=== PATIENT | female | born 1970 | race African-American/Black ===

== ENCOUNTER 2017-07-28 14:48 | Emergency (ER) | payer OTHER ==
[2017-07-28 14:53] VITALS: BP 145/99; PULSE 98; TEMP 99.3; BMI 32.3
--- NOTE | 2017-07-28 15:30 | PDOC ---
History of Present Illness - General Chief Complaint: Vomiting/Diarrhea Stated Complaint: FEVER Time Seen by Provider: 07/28/17 15:30 - History of Present Illness Initial Comments: 07/28/17 19:02 Ms. Tijerina is a 46 yo female w/ pmh of gastritis and pancreatitis who presents for evaluation of 1 month history of diarrhea. She reports this ran for about 3 weeks and had mostly improved before it returned this past week and has been complicated by fever, nausea, and vomiting for the past 2-3 days with associated abdominal pain. The patient denies chest pain, shortness of breath, headache and dizziness. Denies chills and constipation. Denies dysuria, frequency, urgency and hematuria. Allergies: Latex Past History - Past Medical History Allergies/Adverse Reactions: Allergies Allergy/AdvReac Type Severity Reaction Status Date / Time latex Allergy Verified 07/28/17 14:51 Home Medications: Ambulatory Orders Famotidine 20 mg PO BID #60 tablet 09/22/14 Ondansetron [Zofran *Odt*] 8 mg SL TID #15 od.tablet 12/12/14 Oxycodone HCl/Acetaminophen [Percocet 5/325 -] 1 tab PO Q4H #20 tablet 12/12/14 COPD: No GI Disorders: Yes (ACID REFLUX) - Suicide/Smoking/Psychosocial Hx Smoking History: Never smoked Have you smoked in the past 12 months: No Hx Alcohol Use: No Drug/Substance Use Hx: No Review of Systems - Review of Systems Comments:: 07/28/17 19:03 GENERAL/CONSTITUTIONAL: +Subjective fever as described. No chills. No weakness. HEAD, EYES, EARS, NOSE AND THROAT: No change in vision. No ear pain or discharge. No sore throat. CARDIOVASCULAR: No chest pain or shortness of breath RESPIRATORY: No cough, wheezing, or hemoptysis. GASTROINTESTINAL: +N/V/D as described. Abdominal pain for the last 2-3 days as well. No constipation. GENITOURINARY: No dysuria, frequency, or change in urination. MUSCULOSKELETAL: No joint or muscle swelling or pain. No neck or back pain. SKIN: No rash NEUROLOGIC: No headache, vertigo, loss of consciousness, or change in strength/ sensation. ENDOCRINE: No increased thirst. No abnormal weight change HEMATOLOGIC/LYMPHATIC: No anemia, easy bleeding, or history of blood clots. ALLERGIC/IMMUNOLOGIC: No hives or skin allergy. *Physical Exam - Vital Signs Last Vital Signs Temp Pulse Resp BP Pulse Ox 99.3 F 98 H 18 145/99 100 07/28/17 14:51 07/28/17 14:51 07/28/17 14:51 07/28/17 14:51 07/28/17 14:51 - Physical Exam Comments: 07/28/17 19:04 GENERAL: Awake, alert, and fully oriented, in no acute distress HEAD: No signs of trauma, normocephalic, atraumatic EYES: PERRLA, EOMI, sclera anicteric, conjunctiva clear ENT: Auricles normal inspection, hearing grossly normal, nares patent, oropharynx clear without exudates. Moist mucosa NECK: Normal ROM, supple, no lymphadenopathy, JVD, or masses LUNGS: No distress, speaks full sentences, clear to auscultation bilaterally HEART: Regular rate and rhythm, normal S1 and S2, no murmurs, rubs or gallops, peripheral pulses normal and equal bilaterally. ABDOMEN: +TTP in upper left/right quadrants. Normoactive bowel sounds. No guarding, no rebound. No masses EXTREMITIES: Normal inspection, Normal range of motion, no edema. No clubbing or cyanosis. NEUROLOGICAL: Cranial nerves II through XII grossly intact. Normal speech, normal gait, no focal sensorimotor deficits SKIN: Warm, Dry, normal turgor, no rashes or lesions noted. ED Treatment Course - LABORATORY CBC & Chemistry Diagram: 07/28/17 16:00 07/28/17 17:47 Medical Decision Making - Medical Decision Making 07/28/17 19:04 Ms. Tijerina is a 46 yo female w/ pmh as described who presents for evaluation of N/V/D for the past month. Patient found to be acutely tender as well. GI workup started including lipase for r/o pancreatitis and CT abdomen/pelvis to evaluate for acute process. ED course delayed by difficulty accessing veins and hemolyzed labs requiring repeat. Patient currently pending CT. Patient signed out to Dr. Martinez for further evaluation. *DC/Admit/Observation/Transfer Diagnosis at time of Disposition: Nausea & vomiting Qualifiers: Vomiting type: unspecified Vomiting Intractability: non-intractable Qualified Code(s): R11.2 - Nausea with vomiting, unspecified Abdominal pain Qualifiers: Abdominal location: unspecified location Qualified Code(s): R10.9 - Unspecified abdominal pain - Referrals - Patient Instructions - Post Discharge Activity
[2017-07-28] MEDS ORDERED: SODIUM CHLORIDE 1,000 ML IV STA (15:54)
[2017-07-28] MEDS ORDERED: ONDANSETRON 4 MG/2 ML VIAL IVPUSH ONE (15:54)
--- NOTE | 2017-07-28 15:56 | PDOC ---
Attending Attestation - Resident Resident Name: Alexis Whelan - ED Attending Attestation I have performed the following: I have examined & evaluated the patient, The case was reviewed & discussed with the resident, I agree w/resident's findings & plan, Exceptions are as noted - HPI HPI: 07/28/17 15:51 46y F presents 1 month of diarrhea that resolved 2 weeks ago and now with 4 days of epigastric pain, constant, nonradiating, not worsen with food, subjective fever/chills with persistent vomiting. pt notes unable to tolerate oral intake. pt denies any chest pain, new diarrhea, dysuria, sob, cough. on exam pt in no distress, well appearing abdomen noted for mild epigastric pain, otherwise no rebound/guarding ddx pancreatitis, gastritis, gastroenteritis will ck UA will give pepcid/zofran, fluids ek gto screen for acs - Physicial Exam PE: 07/29/17 08:22 see above - Medical Decision Making 07/29/17 08:22 see above
[2017-07-28 16:37] LABS: HCG,QUALITATIVE URINE NEGATIVE
[2017-07-28 16:39] LABS: URINE APPEARANCE CLEAR; URINE BILIRUBIN NEGATIVE (<2.0 mg/dL); URINE BLOOD NEGATIVE (NEGATIVE); URINE COLOR YELLOW; URINE GLUCOSE (UA) NEGATIVE (NEGATIVE); URINE KETONE 2+ (NEGATIVE); URINE LEUK ESTERASE NEGATIVE (NEGATIVE); URINE NITRITE NEGATIVE (NEGATIVE)
[2017-07-28 16:42] LABS: EOS % 0.1 % (0-4.5); HEMATOCRIT 41.1 % (32.4-45.2); HEMOGLOBIN 13.9 GM/dL (10.7-15.3); LYMPH % 19.2 % (8-40); MCH 33.5 pg (25.7-33.7); MCHC 33.7 g/dl (32.0-36.0); MEAN CELL VOLUME 99.4 fl (80-96); MEAN PLT VOLUME 11.2 fl (7.5-11.1); MONO % 2.8 % (3.8-10.2); NEUT % 76.9 % (42.8-82.8); PLATELET COUNT 278 K/MM3 (134-434); RBC 4.13 M/mm3 (3.60-5.2); RDW 13.7 % (11.6-15.6); WHITE BLOOD COUNT 7.8 K/mm3 (4.0-10.0)
[2017-07-28] MEDS ORDERED: FAMOTIDINE 20 MG/50 ML IVPB 20 MG/50 ML MG IVPB ONE ×2 (16:48→16:55)
[2017-07-28] MEDS ORDERED: MAG HYDROX/AL HYDROX/SIMETH 30 ML UNIT-DOSE CUP PO ONE (16:48)
[2017-07-28] MEDS ORDERED: MAG HYDROX/AL HYDROX/SIMETH 30 ML UNIT-DOSE CUP ONE (16:55)
[2017-07-28 17:08] LABS: URINE PROTEIN 1+ (NEGATIVE)
[2017-07-28 17:10] LABS: EPI CELLS RARE /HPF (FEW); URINE MUCUS FEW
[2017-07-28 18:16] LABS: ALK PHOS 69 U/L (45-117); CHLORIDE 105 mmol/L (98-107); POTASSIUM 3.9 mmol/L (3.5-5.1); SGPT/ALT 71 U/L (12-78); SODIUM 139 mmol/L (136-145)
[2017-07-28] MEDS ORDERED: ACETAMINOPHEN 1000 MG/100 ML VIAL (NON FORMULARY) IVPB ONE (18:25)
[2017-07-28 18:26] LABS: ALBUMIN 3.8 g/dl (3.4-5.0); ANION GAP 8 (8-16); BILIRUBIN,TOTAL 0.5 mg/dL (0.2-1.0); BLOOD UREA NITROGEN 8 mg/dL (7-18); CALCIUM 8.8 mg/dL (8.5-10.1); CO2 26 mmol/L (21-32); CREATININE 0.7 mg/dL (0.55-1.02); GLUCOSE,RANDOM 82 mg/dL (74-106); SGOT/AST 33 U/L (15-37); TOT PROT 8.1 g/dl (6.4-8.2)
[2017-07-28] MEDS ORDERED: ACETAMINOPHEN INJECTION 100 ML IVPB ONE (18:30)
--- NOTE | 2017-07-28 20:57 | PDOC ---
History of Present Illness - General Chief Complaint: Vomiting/Diarrhea Stated Complaint: FEVER Time Seen by Provider: 07/28/17 15:30 Past History - Past Medical History Allergies/Adverse Reactions: Allergies Allergy/AdvReac Type Severity Reaction Status Date / Time latex Allergy Verified 07/28/17 14:51 Home Medications: Ambulatory Orders Famotidine 20 mg PO BID #60 tablet 09/22/14 Ondansetron [Zofran *Odt*] 8 mg SL TID #15 od.tablet 12/12/14 Oxycodone HCl/Acetaminophen [Percocet 5/325 -] 1 tab PO Q4H #20 tablet 12/12/14 COPD: No GI Disorders: Yes (ACID REFLUX) - Suicide/Smoking/Psychosocial Hx Smoking History: Never smoked Have you smoked in the past 12 months: No Hx Alcohol Use: No Drug/Substance Use Hx: No *Physical Exam - Vital Signs Last Vital Signs Temp Pulse Resp BP Pulse Ox 99.3 F 98 H 18 145/99 100 07/28/17 14:51 07/28/17 14:51 07/28/17 14:51 07/28/17 14:51 07/28/17 14:51 ED Treatment Course - LABORATORY CBC & Chemistry Diagram: 07/28/17 16:00 07/28/17 17:47 - ADDITIONAL ORDERS Additional order review: Laboratory Results 07/28/17 07/28/17 07/28/17 17:48 17:47 16:00 Sodium 139 Potassium 3.9 Chloride 105 Carbon Dioxide 26 Anion Gap 8 BUN 8 Creatinine 0.7 Creat Clearance w eGFR > 60 Random Glucose 82 Lactic Acid 1.0 Calcium 8.8 Total Bilirubin 0.5 AST 33 ALT 71 Alkaline Phosphatase 69 Total Protein 8.1 Albumin 3.8 Lipase 189 Urine Color Urine Appearance Urine pH Ur Specific [place] Urine Protein Urine Glucose (UA) Urine Ketones Urine Blood Urine Nitrite Urine Bilirubin Urine Urobilinogen Ur Leukocyte Esterase Urine WBC (Auto) Urine RBC (Auto) Ur Epithelial Cells Urine Mucus Urine HCG, Qual 07/28/17 07/28/17 16:00 15:54 Sodium Cancelled Potassium Cancelled Chloride Cancelled Carbon Dioxide Cancelled Anion Gap Cancelled BUN Cancelled Creatinine Cancelled Creat Clearance w eGFR Cancelled Random Glucose Cancelled Lactic Acid Calcium Cancelled Total Bilirubin Cancelled AST Cancelled ALT Cancelled Alkaline Phosphatase Cancelled Total Protein Cancelled Albumin Cancelled Lipase Cancelled Urine Color Yellow Urine Appearance Clear Urine pH 6.0 Ur Specific [place] 1.026 Urine Protein 1+ H Urine Glucose (UA) Negative Urine Ketones 2+ H Urine Blood Negative Urine Nitrite Negative Urine Bilirubin Negative Urine Urobilinogen 2.0 H Ur Leukocyte Esterase Negative Urine WBC (Auto) 1 Urine RBC (Auto) 9 Ur Epithelial Cells Rare Urine Mucus Few Urine HCG, Qual Negative 07/28/17 16:00 RBC 4.13 MCV 99.4 H MCHC 33.7 RDW 13.7 MPV 11.2 H Neutrophils % 76.9 Lymphocytes % 19.2 Monocytes % 2.8 L Eosinophils % 0.1 Basophils % 1.0 - RADIOLOGY Radiology Studies Ordered: Category Date Time Status ABDOMEN & PELVIS CT W/O CONTR [CT] Stat CT Scan 07/28/17 20:52 Ordered - Medications Given in the ED: ED Medications Discontinued Medications Generic Name Dose Route Start Last Admin Trade Name Freq PRN Reason Stop Dose Admin Acetaminophen 1,000 mg 07/28/17 18:25 07/28/17 18:29 Ofirmev Injection - IVPB 07/28/17 18:26 1,000 mg ONCE ONE Administration Al Hydroxide/Mg Hydroxide 30 ml 07/28/17 16:48 07/28/17 17:04 Mylanta Oral Suspension - PO 07/28/17 16:49 30 ml ONCE ONE Administration Sodium Chloride 1,000 mls @ 1,000 mls/hr 07/28/17 15:54 07/28/17 16:03 Normal Saline - IV 07/28/17 16:53 1,000 mls/hr ASDIR STA Administration Famotidine/Sodium Chloride 20 mg in 50 mls @ 100 mls/hr 07/28/17 16:48 17:04 Pepcid 20 Mg Premixed Ivpb - IVPB 07/28/17 17:17 100 mls/hr ONCE ONE Administration Ondansetron HCl 4 mg 07/28/17 15:54 07/28/17 16:03 Zofran Injection IVPUSH 07/28/17 15:55 4 mg ONCE ONE Administration *DC/Admit/Observation/Transfer Diagnosis at time of Disposition: Nausea & vomiting Qualifiers: Vomiting type: unspecified Vomiting Intractability: non-intractable Qualified Code(s): R11.2 - Nausea with vomiting, unspecified Abdominal pain Qualifiers: Abdominal location: unspecified location Qualified Code(s): R10.9 - Unspecified abdominal pain - Referrals - Patient Instructions - Post Discharge Activity
--- NOTE | 2017-07-28 21:28 | PDOC ---
*Physical Exam - Vital Signs Last Vital Signs Temp Pulse Resp BP Pulse Ox 99.3 F 98 H 18 145/99 100 07/28/17 14:51 07/28/17 14:51 07/28/17 14:51 07/28/17 14:51 07/28/17 14:51 - Physical Exam Comments: 07/28/17 22:04 GENERAL: Awake, alert, and fully oriented, in no acute distress HEAD: No signs of trauma, normocephalic, atraumatic EYES: PERRLA, EOMI, sclera anicteric, conjunctiva clear ENT: Hearing grossly normal, nares patent, oropharynx clear without exudates. Moist mucosa NECK: Normal ROM, supple, no lymphadenopathy, JVD, or masses LUNGS: No distress, speaks full sentences, clear to auscultation bilaterally HEART: Regular rate and rhythm, normal S1 and S2, no murmurs, rubs or gallops, peripheral pulses normal and equal bilaterally. ABDOMEN:+ Epigastric ttp. Soft, nontender, normoactive bowel sounds. No guarding, no rebound. No masses. Neg CVA ttp. EXTREMITIES : Normal inspection, Normal range of motion, no edema. No clubbing or cyanosis. SKIN: Warm, Dry, normal turgor, no rashes or lesions noted ED Treatment Course - LABORATORY CBC & Chemistry Diagram: 07/28/17 16:00 07/28/17 17:47 - ADDITIONAL ORDERS Additional order review: Laboratory Results 07/28/17 07/28/17 07/28/17 17:48 17:47 16:00 Sodium 139 Potassium 3.9 Chloride 105 Carbon Dioxide 26 Anion Gap 8 BUN 8 Creatinine 0.7 Creat Clearance w eGFR > 60 Random Glucose 82 Lactic Acid 1.0 Calcium 8.8 Total Bilirubin 0.5 AST 33 ALT 71 Alkaline Phosphatase 69 Total Protein 8.1 Albumin 3.8 Lipase 189 Urine Color Urine Appearance Urine pH Ur Specific [place] Urine Protein Urine Glucose (UA) Urine Ketones Urine Blood Urine Nitrite Urine Bilirubin Urine Urobilinogen Ur Leukocyte Esterase Urine WBC (Auto) Urine RBC (Auto) Ur Epithelial Cells Urine Mucus Urine HCG, Qual 07/28/17 07/28/17 16:00 15:54 Sodium Cancelled Potassium Cancelled Chloride Cancelled Carbon Dioxide Cancelled Anion Gap Cancelled BUN Cancelled Creatinine Cancelled Creat Clearance w eGFR Cancelled Random Glucose Cancelled Lactic Acid Calcium Cancelled Total Bilirubin Cancelled AST Cancelled ALT Cancelled Alkaline Phosphatase Cancelled Total Protein Cancelled Albumin Cancelled Lipase Cancelled Urine Color Yellow Urine Appearance Clear Urine pH 6.0 Ur Specific [place] 1.026 Urine Protein 1+ H Urine Glucose (UA) Negative Urine Ketones 2+ H Urine Blood Negative Urine Nitrite Negative Urine Bilirubin Negative Urine Urobilinogen 2.0 H Ur Leukocyte Esterase Negative Urine WBC (Auto) 1 Urine RBC (Auto) 9 Ur Epithelial Cells Rare Urine Mucus Few Urine HCG, Qual Negative 07/28/17 16:00 RBC 4.13 MCV 99.4 H MCHC 33.7 RDW 13.7 MPV 11.2 H Neutrophils % 76.9 Lymphocytes % 19.2 Monocytes % 2.8 L Eosinophils % 0.1 Basophils % 1.0 - RADIOLOGY Radiology Studies Ordered: Category Date Time Status ABDOMEN & PELVIS CT W/O CONTR [CT] Stat CT Scan 07/28/17 20:52 Ordered - Medications Given in the ED: ED Medications Discontinued Medications Generic Name Dose Route Start Last Admin Trade Name Ramirezq PRN Reason Stop Dose Admin Acetaminophen 1,000 mg 07/28/17 18:25 07/28/17 18:29 Ofirmev Injection - IVPB 07/28/17 18:26 1,000 mg ONCE ONE Administration Al Hydroxide/Mg Hydroxide 30 ml 07/28/17 16:48 07/28/17 17:04 Mylanta Oral Suspension - PO 07/28/17 16:49 30 ml ONCE ONE Administration Sodium Chloride 1,000 mls @ 1,000 mls/hr 07/28/17 15:54 07/28/17 16:03 Normal Saline - IV 07/28/17 16:53 1,000 mls/hr ASDIR STA Administration Famotidine/Sodium Chloride 20 mg in 50 mls @ 100 mls/hr 07/28/17 16:48 17:04 Pepcid 20 Mg Premixed Ivpb - IVPB 07/28/17 17:17 100 mls/hr ONCE ONE Administration Ondansetron HCl 4 mg 07/28/17 15:54 07/28/17 16:03 Zofran Injection IVPUSH 07/28/17 15:55 4 mg ONCE ONE Administration Medical Decision Making - Medical Decision Making 07/28/17 21:25 46 yo F p/w 1 month of diarrhea (resolved) and epigastric pain x 4 days. Recieved handoff from Dr. Whelan. Vitals stable through ED encounter. Laboratory evaluation pending. Considering dyspepsia, gastroenteritis. Low suspicion of pancreatitis. Patient has received fluids and Zofran. Per Dr. Whelan patient is pending CT AP. If negative patient safe for d/c with return precautions. If colitis or other source of infection, consider admission. ED Course: 07/28/17 21:28 CBC, CMP: Unremarkable UA: Neg 07/28/17 21:41 CT AP: Negative. Hepatic steatosis. Patient able to tolerate PO intake. Patient stable for d/c with return precautions. Advised to f/u with GI and PMD. *DC/Admit/Observation/Transfer Diagnosis at time of Disposition: Nausea & vomiting Qualifiers: Vomiting type: unspecified Vomiting Intractability: non-intractable Qualified Code(s): R11.2 - Nausea with vomiting, unspecified Abdominal pain Qualifiers: Abdominal location: unspecified location Qualified Code(s): R10.9 - Unspecified abdominal pain - Discharge Dispostion Condition at time of disposition: Stable Decision to Admit order: No - Referrals Referrals: Armando Tyson MD [Staff Physician] - - Patient Instructions Printed Discharge Instructions: DI for Abdominal Pain-Adult Additional Instructions: Please return to the emergency department with any new or worsening symptoms or concerns. Please follow up with your primary care physician within 72 hours. Please follow up with gastroenterology within one week. - Post Discharge Activity - Attestations Physician Attestion: 07/28/17 21:30 I attest to the information provided in this note.
--- NOTE | 2017-07-29 17:49 | EKG ---
Test Reason : Blood Pressure : / mmHG Vent. Rate : 083 BPM Atrial Rate : 083 BPM P-R Int : 150 ms QRS Dur : 066 ms QT Int : 362 ms P-R-T Axes : 016 022 009 degrees QTc Int : 425 ms NORMAL SINUS RHYTHM NONSPECIFIC T WAVE ABNORMALITY ABNORMAL ECG NO PREVIOUS ECGS AVAILABLE Confirmed by CHANO CERDA, KSENIA ([id number]) on 07/29/2017 5:49:39 PM Referred By: Confirmed By:KSENIA MADDEN MD
== END 2017-07-28 23:03 | disposition home or self-care (01) ==
LOC: JER 14:48
PROC: 3E033GC Introduction of Other Therapeutic Substance into Peripheral Vein, Percutaneous Approach (ICD-10-PCS; principal; 2017-07-28)
PROC: 3E033GC Introduction of Other Therapeutic Substance into Peripheral Vein, Percutaneous Approach (ICD-10-PCS; 2017-07-28)
PROC: 3E033NZ Introduction of Analgesics, Hypnotics, Sedatives into Peripheral Vein, Percutaneous Approach (ICD-10-PCS; 2017-07-28)
DX: R11.2 Nausea with vomiting, unspecified (principal); R10.30 Lower abdominal pain, unspecified; K21.9 Gastro-esophageal reflux disease without esophagitis; Z87.19 Personal history of other diseases of the digestive system
CPT/HCPCS: 36415; 74176-TC; 80053; 81003; 81015; 83605; 83690; 84703; 85025; 87086; 93005; 93010; 99283-25; J0131; J7030